=== PATIENT | female | born 1950 | race Caucasian/White ===

== ENCOUNTER → 2017-08-11 | Outpatient (CLI) | payer MEDICARE, OTHER ==
[~2017-08-11] MED LIST: ACETAMINOPHEN325 M2 PO; ALBUTEROL-200 PUFFS/ IH; ALDACTONE 25MG25 MG PO; ASPIRIN ADULT L81 M2 PO; ASPIRIN LOW DOS81 MG PO; BENAZEPRIL HYDR40 MG PO; BETASERON0.3 MG SC; BYSTOLIC10 MG PO; DICYCLOMINE10 MG PO; FEVER REDUCER650 MG PR; FLAGYL 500MG.500 MG PO; FLUTICASONE 50M16 GM; FOLIC ACID 1MG T1 MG PO; FUROSEMIDE40 MG PO; GABAPENTIN 600600 MG PO; HYDROCHLOROTHIA25 M1 PO; INDOMETHACIN 2525 MG PO; K-DUR 2020 MEQ PO; LABETALOL HCL5 MG/ML IV; LEVAQUIN 750 M750 MG PO; LEVOTHROID0.1 MG PO; LORATADINE 10MG10 M1 PO; MORPHINE 2MG.2 MG/ML IV; NEXIUM40 MG PO; ONDANSETRON4 MG/2 ML IV; POTASSIUM CHLO20 ME2 PO; POTASSIUM CHLO20 MEQ PO; QUINAPRIL20 MG PO; QUINAPRIL40 MG PO; SERTRALINE 50MG50 MG PO; SYMMETREL 100M100 MG PO; SYNTHROID 0.1M0.1 MG PO; TRAZODONE50 MG PO; VYTORIN 10 MG-21 TAB PO
[2017-08-11 09:38] LABS: HEMOGLOBIN 13.3 g/dL (12.2-16.2); LYMPH # 1.5 K/mm3 (0.7-4.5)
[2017-08-11 11:56] LABS: BUN 29 mg/dL (7-18)
[2017-08-11 11:57] LABS: GFR (ESTIMATED) 55 ML/MIN (59-)
== END ==
LOC: LAB 09:22
PROVIDERS: Internal Medicine
DX: I10 Essential (primary) hypertension (principal); G35 Multiple sclerosis; D18.03 Hemangioma of intra-abdominal structures

== ENCOUNTER 2017-08-30 11:56 | Emergency (ER) | payer MEDICARE, OTHER ==
[~2017-08-30] VITALS: Ht 165.1 cm; Wt 72.6 kg
--- NOTE | 2017-08-30 12:15 | Emergency Room Report ---
History of Present Illness Time Seen by [id number] Presenting Problem in Triage Pt arrived:Wheelchair Presenting Problem:pt fell back off a treadmill and hit head on floor. -loc. pt denies neck or back pain. 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 N Clinical Suspician of Infection? N Mental Status: 1 - Regular (Normal Baseline) Sepsis Risk:Low Sepsis Risk Have you (or family members/close friends) recently traveled outside the [place]? N If Yes, where/when: Have you had exposure to infectious disease within the past month? TB? Other? Specify: Accidentally fell off treadmill when stumbled; no prodrome. C/O swelling to posterior skull, no laceraiton, neg LOC, no neurological sx. No neck, rib, or back pain. No visual changes. No vomiting. Takes ASA. ALLERGIES Coded Allergies: No Known Allergies (10/11/15) Home Medications Active Scripts ACETAMINOPHEN (Acetaminophen) 650 MG FL Q4HP PRN FOR PAIN OR INC'D TEMP 1 Days Prov: 09/28/14 Labetalol Hydrochloride (Labetalol HCl) 20 MG IV Q6 1 Days Prov: 09/28/14 LEVOTHYROXINE SOD (Levothroid) 0.1 MG PO DAILY 1 Days Prov: 09/28/14 Morphine Sulfate (Morphine 2MG. Injection) 2 MG IV Q1HP PRN SEVERE PAIN 1 Days Prov: 09/28/14 Ondansetron (Ondansetron HCl 4 MG/2 Ml Vial) 4 MG IV Q6HP PRN NAUSEA AND VOMITING 1 Days Prov: 09/28/14 History Medical History General CAD? No Angina: No IN: No Hypertension? Yes Hyperlipidemia? Yes CHF? No DVT? No PE? No COPD? No Asthma? No Anemia? No GERD? No Gastric ulcers? No GI Bleed? No Hernia? No Thyroid Problems? No Hypothyroidism? No CVA? No Seizures? No Diabetes? No End Stage Renal Disease? No UTI? No Stones? No BPH? No GB Disease: Yes Nephritic Syndrome? No Asplenia? No Hepatitis? No Sickle Cell Disease? No Arthritis? Yes Migraines? No Cataracts? Yes Glaucoma? Yes MRSA? No HIV? No TB? No Anxiety? No Depression? No Cancer? No More? Yes Additional hx: multiple sclerosis Immunization Hx DT/Tetanus Unknown Flu [id number] Flu Season Pneumonia Received In Past Surgical Hx Previous Surgery?Y BACK SURGERY HYSTERECTOMY LT FOOT, BONE SPUR TONSILLECTOMY GALLBLADDER REMOVED SADIE CATARACTS REMOVED THYROID Family History Family Hx Diabetes Yes CAD Yes Hypertension Yes Hyperlipidemia No Cancer No TB No Social History Smoking Hx Smoker: Former Smoker Tobacco: No Packs/day < 1 Pack Alcohol Alcohol: No Review of Systems All Other Systems Reviewed and Negative Musculoskeletal see HPI Physical Exam Vital Signs Vital Signs Date Time Temp Pulse Resp B/P Pulse O2 O2 Flow FiO2 Ox Delivery Rate 08/30 1201 98.0 62 20 162/99 97 General Appearance normal appearance, WD/WN, no apparent distress Eye Exam - bilateral eye normal exam Ear, Nose, Throat hearing grossly normal (ENT atraumatic;swelling skull) Neck non-tender, supple, full range of motion Respiratory Status Yes: trachea midline, chest symmetrical, non tender chest. No: respiratory distress, tender on palpation, use of accessory muscles, pain on inspiration, pain on expiration, productive cough, non productive cough. Lung Sounds bilateral: normal breath sounds, lungs clear. 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 No Results/Orders Current Medication Orders Sig/Luis Start time Last Medication Dose Route Stop Time Status Admin Acetaminophen 650 MG ONCE ONE 08/30 1215 DC 08/30 PO 08/30 Acetaminophen 0 .STK-MED ONE 08/30 1208 DC PO Orders Procedure Date/time Status DIET-NOTHING BY MOUTH 08/[address] SCAN REQ 08/[address] HEAD REQ 08/30 1206 Complete XRAY/CT/US XRAY/CT/US CT head, C-spine CT interpretation by reviewed by me (rad report reviewed) Time results known: 1252 CT Results normal/NAD, no fracture seen Comment no acute findings per report other than scalp hematoma Departure Departure Time of Disposition 1253 Disposition DC Home or Self Care(routine) Clinical Impression Primary Impression: Scalp hematoma Qualifiers: Encounter type: initial encounter Qualified Code: S00.03XA - Contusion of scalp, initial encounter Condition STABLE Referrals Kenney SHARMA,Mando Ross (Family) Patient Instructions Contusion Additional Instructions Ice ten to twenty minutes every few hours while awake, Tylenol as needed, see Dr. Moulton for recheck in one to two days, anticipate more swelling over the next day. Discharge Counseling Counseled pt/family regarding diagnosis, test results, medications/RX, home care, follow up needs ED Critical Care Critical Care No at 1258
--- NOTE | 2017-08-30 12:15 | Emergency Room Report ---
History of Present Illness Time Seen by [id number] Presenting Problem in Triage Pt arrived:Wheelchair Presenting Problem:pt fell back off a treadmill and hit head on floor. -loc. pt denies neck or back pain. 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 N Clinical Suspician of Infection? N Mental Status: 1 - Regular (Normal Baseline) Sepsis Risk:Low Sepsis Risk Have you (or family members/close friends) recently traveled outside the [place]? N If Yes, where/when: Have you had exposure to infectious disease within the past month? TB? Other? Specify: Accidentally fell off treadmill when stumbled; no prodrome. C/O swelling to posterior skull, no laceraiton, neg LOC, no neurological sx. No neck, rib, or back pain. No visual changes. No vomiting. Takes ASA. ALLERGIES Coded Allergies: No Known Allergies (10/11/15) Home Medications Active Scripts ACETAMINOPHEN (Acetaminophen) 650 MG HI Q4HP PRN FOR PAIN OR INC'D TEMP 1 Days Prov: 09/28/14 Labetalol Hydrochloride (Labetalol HCl) 20 MG IV Q6 1 Days Prov: 09/28/14 LEVOTHYROXINE SOD (Levothroid) 0.1 MG PO DAILY 1 Days Prov: 09/28/14 Morphine Sulfate (Morphine 2MG. Injection) 2 MG IV Q1HP PRN SEVERE PAIN 1 Days Prov: 09/28/14 Ondansetron (Ondansetron HCl 4 MG/2 Ml Vial) 4 MG IV Q6HP PRN NAUSEA AND VOMITING 1 Days Prov: 09/28/14 History Medical History General CAD? No Angina: No [place]: No Hypertension? Yes Hyperlipidemia? Yes CHF? No DVT? No PE? No COPD? No Asthma? No Anemia? No GERD? No Gastric ulcers? No GI Bleed? No Hernia? No Thyroid Problems? No Hypothyroidism? No CVA? No Seizures? No Diabetes? No End Stage Renal Disease? No UTI? No Stones? No BPH? No GB Disease: Yes Nephritic Syndrome? No Asplenia? No Hepatitis? No Sickle Cell Disease? No Arthritis? Yes Migraines? No Cataracts? Yes Glaucoma? Yes MRSA? No HIV? No TB? No Anxiety? No Depression? No Cancer? No More? Yes Additional hx: multiple sclerosis Immunization Hx DT/Tetanus Unknown Flu [id number] Flu Season Pneumonia Received In Past Surgical Hx Previous Surgery?Y BACK SURGERY HYSTERECTOMY LT FOOT, BONE SPUR TONSILLECTOMY GALLBLADDER REMOVED SADIE CATARACTS REMOVED THYROID Family History Family Hx Diabetes Yes CAD Yes Hypertension Yes Hyperlipidemia No Cancer No TB No Social History Smoking Hx Smoker: Former Smoker Tobacco: No Packs/day < 1 Pack Alcohol Alcohol: No Review of Systems All Other Systems Reviewed and Negative Musculoskeletal see HPI Physical Exam Vital Signs Vital Signs Date Time Temp Pulse Resp B/P Pulse O2 O2 Flow FiO2 Ox Delivery Rate 08/30 1201 98.0 62 20 162/99 97 General Appearance normal appearance, WD/WN, no apparent distress Eye Exam - bilateral eye normal exam Ear, Nose, Throat hearing grossly normal (ENT atraumatic;swelling skull) Neck non-tender, supple, full range of motion Respiratory Status Yes: trachea midline, chest symmetrical, non tender chest. No: respiratory distress, tender on palpation, use of accessory muscles, pain on inspiration, pain on expiration, productive cough, non productive cough. Lung Sounds bilateral: normal breath sounds, lungs clear. 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 No Results/Orders Current Medication Orders Sig/Luis Start time Last Medication Dose Route Stop Time Status Admin Acetaminophen 650 MG ONCE ONE 08/30 1215 DC 08/30 PO 08/30 Acetaminophen 0 .STK-MED ONE 08/30 1208 DC PO Orders Procedure Date/time Status DIET-NOTHING BY MOUTH 08/[address] SCAN REQ 08/[address] HEAD REQ 08/30 1206 Complete XRAY/CT/US XRAY/CT/US CT head, C-spine CT interpretation by reviewed by me (rad report reviewed) Time results known: 1252 CT Results normal/NAD, no fracture seen Comment no acute findings per report other than scalp hematoma Departure Departure Time of Disposition 1253 Disposition DC Home or Self Care(routine) Clinical Impression Primary Impression: Scalp hematoma Qualifiers: Encounter type: initial encounter Qualified Code: S00.03XA - Contusion of scalp, initial encounter Condition STABLE Referrals Kenney SHARMA,Mando Ross (Family) Patient Instructions Contusion Additional Instructions Ice ten to twenty minutes every few hours while awake, Tylenol as needed, see Dr. Moultno for recheck in one to two days, anticipate more swelling over the next day. Discharge Counseling Counseled pt/family regarding diagnosis, test results, medications/RX, home care, follow up needs ED Critical Care Critical Care No at 1250
--- NOTE | 2017-08-30 12:45 | RADIOLOGY REPORT PS360 ---
CT HEAD W/O CONTRAST HISTORY: Headache, head pain, swelling and pain, contusion following injury HEAD INJURY ORDERING PHYSICIAN: Meseret Anthony MD PATIENT AGE: 66 years COMPARISON: None TECHNIQUE: Axial images obtained without contrast. Brain and bone windows reviewed. FINDINGS: No midline shift, mass effect, intracranial hemorrhage, hydrocephalus, or extra-axial fluid collection is evident. There is generalized atrophy with scattered areas of decreased attenuation in the periventricular region consistent with ischemic gliotic change from microvascular disease. The calvarium has an unremarkable appearance. Soft tissue swelling is present within the scalp in the vertex area. No obvious fracture. No mastoid effusion. The visualized paranasal sinuses are unremarkable. IMPRESSION: 1. No acute intracranial findings. 2. Atrophy with chronic ischemic change. 3. Scalp contusion.
--- NOTE | 2017-08-30 12:49 | RADIOLOGY REPORT PS360 ---
CT CERVICAL SPINE W/O CONT INDICATION: Neck pain following injury FELL ORDERING PHYSICIAN: Meseret Anthony MD PATIENT AGE: 66 years COMPARISON: None TECHNIQUE: Axial images are obtained without contrast. Sagittal and coronal reformatted images are reviewed as well. FINDINGS: There is normal alignment. No fracture or dislocation is evident. Mild degenerative disc disease C5-C6. Right-sided foraminal narrowing from uncovertebral hypertrophy. No prevertebral soft tissue swelling. Lung apices are clear. 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 IMPRESSION: 1. No acute fracture. 2. Mild cervical spondylosis
[2017-08-30 12:58] VITALS: BP 136/89
--- OUTSIDE RECORDS SUMMARY | 2017-09-04 01:56 | External Medical Summary Rpt | CCD ---
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 ENT USE [facility] I10 ESSENTIAL (PRIMARY) HYPERTENSIO N Allergies, Adverse Reactions, Alerts Type Allergy to substance Adverse Reaction to Substance Substance Reaction Severity NO KNOWN ALLERGIES Unknown Unknown Medications Na ND Rx Da Fi Fi Am Da Di Ph RX Ph St me C No te ll ll ou ys ag ar # ys at rm s nt no ma ic us Or Da si cy ia de te s n re d LA [address] 40 -3 AT 97 0- Lo ED 95 20 ng 30 14 er RI 9 NG Ac ER ti S ve IN JE CT IO N De 00 01 0 No xa 51 -3 me 74 0- Lo th 90 20 ng as 52 14 er on 5 e Ac 4M ti G/ ve Ml 5M L Md v HY [address] 40 -3 OC 60 0- Lo OD 36 20 ng ON 56 14 er -A 2 CE Ac TA ti VA ve NO PH EN 5- 32 5 Mo 00 01 1 No rp 40 -3 hi 91 0- Lo ne 76 20 ng 23 14 er 2M 0 G/ Ac Ml ti ve Sy ri ng e ON 00 01 1 No DA 64 -3 NS 16 0- Lo ET 08 20 ng RO 02 14 er N 5 HC Ac L ti 4 ve MG /2 ML AL OY [address] 90 -3 ER 45 0- Lo 46 20 ng SH 09 14 er EL 2 L Ac 50 ti 0- ve T D3 20 0 TB SY 00 01 1 No NT 07 -3 HR 46 0- Lo OI 62 20 ng D 41 14 er 10 1 0 Ac MC ti G ve TA BL ET CE 00 01 0 No FA 40 -3 ZO 92 0- Lo LI 58 20 ng N 50 14 er 1 1 GM Ac ti AD ve D- VA N AL SO 00 01 0 No DI 40 -3 UM 97 0- Lo 10 20 ng CH 16 14 er LO 6 RI Ac DE ti ve 0. 9% SO LN Vital Signs 12-22-2013 10:00 Name Value Interpretat Reference Comment ion Range Body 98.5 [degF] Temperature BP 72 mm[Hg] Diastolic BP Systolic 137 mm[Hg] Heart 75 /min Rate/Pulse Respiratory 18 /min Rate 12-22-2013 04:00 Name Value Interpretat Reference Comment ion Range O2% 94 % 12-22-2013 Name Value Interpretat Reference Comment ion Range O2% 97 % 12-21-2013 13:15 Name Value Interpretat Reference Comment ion Range Body 97.6 [degF] Temperature BP 73 mm[Hg] Diastolic BP Systolic 138 mm[Hg] Heart 80 /min Rate/Pulse Height 160.02 cm Respiratory 14 /min Rate Weight 62.370 kg Measured 12-21-2013 12:19 Name Value Interpretat Reference Comment ion Range Weight 130 [lb_av] Measured Results Labs Lab Lab Date Result Refere Interp Status Commen Order Detail nces retati t Range on Calcium SerPl-mCnc (12-22-2013 10:00) Calcium 9.3 8.5-10. complet 014 mg/dL 1 ed SerPl-m 10:00 Cnc Procedures Procedure DOS Code Location Performer Comment PART 0651 Shady Whitney THYROIDEC T Encounters Encounter Start End Date Code Location Performer Type Date Inpatient IMP Martínez Whitney MD ([place]) 4 07:05 4 11:[facility]
--- OUTSIDE RECORDS SUMMARY | 2017-09-04 01:56 | External Medical Summary Rpt | CCD ---
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 Mep Name Role Phone Shady Whitney MD, Unavailable Unavailable Shady Whitney MD Purpose Continuity of Care Document - 12-21-2013 through 2016 Problems Code Diagnosis DOS Provider Status 241.0 241.0 12-22-2013 [facility] GOITER 340 340 12-22-2013 [facility] 401.9 401.9 12-22-2013 [facility] V58.69 V58.69 OT 12-22-2013 [place] [facility] ENT USE [facility] I10 ESSENTIAL (PRIMARY) HYPERTENSIO N Allergies, [...] er -A 2 CE Ac TA ti ME ve NO PH EN 5- 32 5 [...] Whitney MD ([place]) 4 07:05 [facility]
--- OUTSIDE RECORDS SUMMARY | 2017-09-04 01:57 | External Medical Summary Rpt | CCD ---
Author Author , SHAYLA Organization SHAYLA Address Unknown Phone [email or web address] Immunization Name Date Rout CVX Reac Dose Comm Prov Is Faci e tion ent ider Refu lity Give sed n Td 03- 9 999 Hist H149 No H149 (danielle 12-10 ori lt), 97 al Info adso rmat rbed ion - Sour ce Unsp ecif ied
--- OUTSIDE RECORDS SUMMARY | 2017-09-04 01:57 | External Medical Summary Rpt | CCD ---
Author Author [employer] Organization [employer] Address Unknown Phone Unavailable Purpose Continuity of Care Document - through 2016
--- OUTSIDE RECORDS SUMMARY | 2017-09-04 01:57 | External Medical Summary Rpt ---
Author Author SAROJROGER Gaitan, SHAYLA [employer] Organization [employer] Address Unknown Phone Unavailable Results Comprehensive metabolic 2000 panel in Serum or Plasma Observa Value Referen Units Interpr Notes Date tion ce etation Range Albumin/G 1.1 - 1.8 No Normal No Sep 20 lobulin informati informati 2017 9:22 [Mass on in on in AM ratio] in source source Serum or data data Plasma Albumin 3.4 - 5.0 gm/dL Normal No Sep 20 [Mass/vol informati 2017 9:22 ume] in on in AM Serum or source Plasma data Alkaline 46 - 116 U/L Normal No Sep 20 phosphata informati 2017 9:22 se on in AM [Enzymati source c data activity/ volume] in Serum or Plasma Bilirubin 0.2 - 1.0 mg/dL Normal No Sep 20 .total informati 2017 9:22 [Mass/vol on in AM ume] in source Serum or data Plasma Urea 7 - 18 mg/dL High No Sep 20 nitrogen informati 2017 9:22 [Mass/vol on in AM ume] in source Serum or data Plasma Calcium 8.5 - mg/dL Normal No Sep 20 [Mass/vol 10.1 informati 2017 9:22 ume] in on in AM Serum or source Plasma data Chloride 98 - 107 mmoL/L Normal No Sep 20 [Moles/vo informati 2017 9:22 lume] in on in AM Serum or source Plasma data Carbon 21.0 - mmoL/L Normal No Sep 20 dioxide, 32.0 informati 2017 9:22 total on in AM [Moles/vo source lume] in data Serum or Plasma Creatinin 0.55 - mg/dL Normal No Sep 20 e 1.02 informati 2017 9:22 [Mass/vol on in AM ume] in source Serum or data Plasma Estimated 59- ML/MIN Low REFERENCE Sep 20 RANGE: 2017 9:22 glomerula >60 AM r ML/MIN/1. filtratio 73 SQUARE n rate METERSIf (GF this patient is -A merican, then multiply theresult by 1.210. Globulin 1.3 - 3.2 gm/dL High No Sep 20 [Mass/vol informati 2017 9:22 ume] in on in AM Serum source data Glucose 74 - 106 mg/dL Normal No Sep 20 [Mass/vol informati 2017 9:22 ume] in on in AM Serum or source Plasma data Potassium 3.5 - 5.1 mmoL/L Normal No Sep 20 informati 2017 9:22 [Moles/vo on in AM lume] in source Serum or data Plasma Sodium 136 - 145 mmoL/L Normal No Sep 20 [Moles/vo informati 2017 9:22 lume] in on in AM Serum or source Plasma data Aspartate 15 - 37 U/L Normal No Sep 20 informati 2017 9:22 aminotran on in AM sferase source [Enzymati data c activity/ volume] in Serum or Plasma Alanine 12 - 78 U/L Normal No Sep 20 aminotran informati 2017 9:22 sferase on in AM [Enzymati source c data activity/ volume] in Serum or Plasma Protein 6.4 - 8.2 gm/dL Normal No Sep 20 [Mass/vol informati 2017 9:22 ume] in on in AM Serum or source Plasma data Lipid 1996 panel in Serum or Plasma Observa Value Referen Units Interpr Notes Date tion ce etation Range Cholester < 200 mg/dL No No Sep 20 ol informati informati 2017 9:22 [Moles/vo on in on in AM lume] in source source Unspecifi data data ed specimen Cholester 40 - 60 MG/DL Normal No Sep 20 ol in HDL informati 2017 9:22 on in AM [Mass/vol source ume] in data Serum or Plasma Cholester 0 - 130 mg/dL Normal No Sep 20 ol in LDL informati 2017 9:22 on in AM [Mass/vol source ume] in data Serum or Plasma by calclupis on Triglycer 30 - 200 mg/dL Normal No Sep 20 suha informati 2017 9:22 [Moles/vo on in AM lume] in source Serum or data Plasma Cholester 0 - 40 No Normal No Sep 20 ol in informati informati 2017 9:22 VLDL on in on in AM [Mass/vol source source ume] in data data Serum or Plasma CBC W Auto Differential panel in Blood Observa Value Referen Units Interpr Notes Date tion ce etation Range Basophils 0 - 0.2 K/MM3 Normal No Sep 20 informati 2017 9:22 [#/volume on in AM ] in source Blood by data Automated count Basophils 0.1 - 2.0 % Normal No Sep 20 /100 informati 2017 9:22 leukocyte on in AM s in source Blood by data Automated count Eosinophi 0.0 - 0.4 K/mm3 Normal No Sep 20 ls informati 2016 9:22 [#/volume on in AM ] in source Blood by data Automated count Eosinophi 0.1 - % Normal No Sep 20 ls/100 12.0 informati 2017 9:22 leukocyte on in AM s in source Blood by data Automated count Granulocy 1.8 - 7.8 K/mm3 Normal No Sep 20 andrew informati 2017 9:22 [#/volume on in AM ] in source Blood by data Automated count Granulocy 37.0 - % Normal No Sep 20 andrew/100 80.0 informati 2016 9:22 leukocyte on in AM s in source Blood by data Automated count Hematocri 37.0 - % Normal No Sep 20 t [Volume 47.0 informati 2017 9:22 on in AM Fraction] source of Blood data Hemoglobi 12.2 - g/dL Normal No Sep 20 n 16.2 informati 2017 9:22 [Mass/vol on in AM ume] in source Blood data Lymphocyt 0.7 - 4.5 K/mm3 Normal No Sep 20 es informati 2017 9:22 [#/volume on in AM ] in source Unspecifi data ed specimen by Automated count Lymphocyt 10 - 50.0 % Normal No Sep 20 es informati 2016 9:22 [#/volume on in AM ] in source Unspecifi data ed specimen by Automated count Erythrocy 27 - 31.2 pg Normal No Sep 20 te mean informati 2017 9:22 corpuscul on in AM ar source hemoglobi data n [Entitic mass] Erythrocy 31.8 - g/dl Normal No Sep 20 te mean 35.4 informati 2017 9:22 corpuscul on in AM ar source hemoglobi data n concentra tion [Mass/vol ume] by Automated count Erythrocy 82.2 - fl Normal No Sep 20 te mean 97.8 informati 2016 9:22 corpuscul on in AM ar volume source [Entitic data volume] by Automated count Monocytes 0.1 - 1.0 K/mm3 Normal No Sep 20 informati 2017 9:22 [#/volume on in AM ] in source Blood by data Automated count Monocytes 1.7 - 9.3 % Normal No Sep 20 /100 informati 2017 9:22 leukocyte on in AM s in source Blood by data Automated count Platelet 7.4 - fl Normal No Sep 20 mean 10.4 informati 2017 9:22 volume on in AM [Entitic source volume] data in Blood by Automated count Platelets 142 - 424 K/mm3 Normal No Sep 20 informati 2017 9:22 [#/volume on in AM ] in source Blood data Erythrocy 4.2 - 5.4 M/mm3 Normal No Sep 20 andrew informati 2017 9:22 [#/volume on in AM ] in source Amniotic data fluid Erythrocy 11.5 - % Normal No Sep 20 te 17.5 informati 2017 9:22 distribut on in AM ion width source [Entitic data volume] by Automated count Leukocyte 4.8 - K/MM3 Normal No Sep 20 s 10.8 informati 2017 9:22 [#/volume on in AM ] in source Blood data
--- OUTSIDE RECORDS SUMMARY | 2017-09-04 01:57 | External Medical Summary Rpt | CCD ---
Author Author , SHAYLA Organization SHAYLA Address Unknown Phone [email or web address] Immunization Name Date Rout CVX Reac Dose Comm Prov Is Faci e tion ent ider Refu lity Give sed n Td 03- 9 999 Hist H149 No H149 (danielle 12-10 ori lt), 97 al Info adso rmat rbed ion - Sour ce Unsp ecif ied
--- OUTSIDE RECORDS SUMMARY | 2017-09-04 01:57 | External Medical Summary Rpt ---
Author Author SAROJROGER Gaitan, SHAYLA [employer] Organization [employer] Address Unknown Phone Unavailable [...]
== END 2017-08-30 12:58 | disposition home or self-care (01) ==
LOC: ER 11:56
DX: S00.03XA Contusion of scalp, initial encounter (principal); I10 Essential (primary) hypertension; E78.5 Hyperlipidemia, unspecified; Z87.891 Personal history of nicotine dependence; W10.2XXA Fall (on)(from) incline, initial encounter; Y93.A1 Activity, exercise machines primarily for cardiorespiratory conditioning; Y92.29 Other specified public building as the place of occurrence of the external cause